=== PATIENT | female | born 1985 | race Caucasian/White ===

== ENCOUNTER → 2016-12-01 | Day surgery (SDC) | payer BC ==
[2016-11-29 08:37] VITALS: Ht 152.4 cm; Wt 111.4 kg
[~2016-12-01] VITALS: Ht 152.4 cm; Wt 111.4 kg
[~2016-12-01] MED LIST: BCTROWC EXT; CYCL5TAB PO; LACTATED RINGER'S 1000ML 1,000 ML IV ONE; LIDOCAINE HCL 2% 2 ML VIAL (20MG/ML) ONE; LORA-741 PO; MULT-506 PO; ONDANSETRON INJ 2 MG/ML 2 ML VIAL IV PRN; PROPOFOL IV EMULSION 10 MG/ML 20 ML VIAL IV ONE; SERT-234 PO
--- NOTE | 2016-12-01 09:35 | Endo History and Physical ---
History & Physical Date of Service: Dec 01, 2016. Chief Complaint: Diarrhea Referring Physician: History of Present Illness 31-year-old female referred for colonoscopy to evaluate 2-3 history of diarrhea. She describes having loose to liquid bowel movements 5-10 times per day. This is occasionally associated with urgency and cramping. There is no family history of inflammatory bowel disease however, there is a family history of celiac disease. She did have celiac serologies which were negative. Other issues include a cholecystectomy done about 2 years ago. Past Surgical History Hx Cardiac Surgery: No Hx Internal Defibrillator: No Hx Pacemaker: No Hx Abdominal Surgery: Yes (ZOE, TUBAL LIGATION) Hx of Implantable Prosthesis: No Hx Post-Op Nausea and Vomiting: No Hx Cancer Surgery: No Hx Thoracic Surgery: No Hx Orthopedic: No Hx Urinary Tract Surgery: No Cholecystectomy Tubal Ligation Family History None Social History Smoking Status: Former Smoker Hx Substance Use: No Hx Alcohol Use: No Allergies Coded Allergies: Acetaminophen (Verified Allergy, Unknown, ITCHING, 12/01/16) Butalbital (Verified Allergy, Unknown, ITCHING, 11/29/16) Caffeine (Verified Allergy, Unknown, ITCHING, 11/29/16) Meperidine (Verified Allergy, Unknown, DRY HEAVES, 11/29/16) Sulfites (Verified Allergy, Unknown, ITCHING, 11/29/16) Sumatriptan (Verified Allergy, Unknown, N/V, 11/29/16) Current Medications Reported Home Medications Medications Dose Route/Sig Max Daily Dose Days Date Category Multivitamin (Multivitamins) Tab 1 Tab PO QAM 11/29/16 Reported Flexeril (Cyclobenzaprine Hcl) 5 Mg Tab 5 Mg PO TID PRN 11/29/16 Reported Bactroban 2% Oint (Mupirocin) 66 Appln/22 Gm Oint 1 Appln EXT DAILY PRN 11/29/16 Reported Ativan (Lorazepam) 0.5 Mg Tab 0.5 Mg PO TID PRN 11/29/16 Reported Zoloft (Sertraline HCl) 100 Mg Tab 100 Mg PO HS 11/29/16 Reported Vital Signs Weight (Kilograms): 111.36 Height (Feet): 5 Height (Inches): 0 Physical Exam General Appearance: no apparent distress Respiratory/Chest: Auscultation: breath sounds normal Cardiovascular: Heart Auscultation: RRR Abdomen: Inspection & Palpation: soft Assessment and Plan Colonoscopy for evaluation of diarrhea. We have discussed the risks and his colon polyps. We will plan to do stool cultures and random biopsies during the examination if the mucosa appears normal.
[2016-12-01 09:37] VITALS: TEMP 36.9
--- NOTE | 2016-12-01 10:12 | GI REPORT ---
Procedure Date: 12/01/2016 9:47 AM Procedure: Colonoscopy Indications: Chronic diarrhea Medicines: Monitored Anesthesia Care Complications: No immediate complications. Estimated blood loss: Minimal. Estimated Blood Loss: Estimated blood loss was minimal. Procedure: Pre-Anesthesia Assessment: - Prior to the procedure, a History and Physical was performed, and patient medications, allergies and sensitivities were reviewed. The patient's tolerance of previous anesthesia was reviewed. - The risks and benefits of the procedure and the sedation options and risks were discussed with the patient. All questions were answered and informed consent was obtained. - Patient identification and proposed procedure were verified prior to the procedure by the physician, the nurse and the bow string maker. The procedure was verified in the procedure room. - Pre-procedure physical examination revealed no contraindications to sedation. - ASA Grade Assessment: II - A patient with mild systemic disease. - After reviewing the risks and benefits, the patient was deemed in satisfactory condition to undergo the procedure. - The anesthesia plan was to use monitored anesthesia care (MAC). - Immediately prior to administration of medications, the patient was re-assessed for adequacy to receive sedatives. - The heart rate, respiratory rate, oxygen saturations, blood pressure, adequacy of pulmonary ventilation, and response to care were monitored throughout the procedure. - The physical status of the patient was re-assessed after the procedure. After I obtained informed consent, the scope was passed under direct vision. Throughout the procedure, the patient's blood pressure, pulse, and oxygen saturations were monitored continuously. The scope was introduced through the anus and advanced to the terminal ileum. The colonoscopy was performed without difficulty. The patient tolerated the procedure well. The quality of the bowel preparation was good. Findings: The perianal and digital rectal examinations were normal. Pertinent negatives include normal sphincter tone. The terminal ileum appeared normal. Normal mucosa was found in the entire colon. Biopsies for histology were taken with a cold forceps from the entire colon for evaluation of microscopic colitis. Fluid aspiration was performed. Sample(s) were sent for bacterial cultures, Clostridium difficile and ova and parasites. Internal hemorrhoids were found during retroflexion. The hemorrhoids were mild. The exam was otherwise without abnormality. Impression: - The examined portion of the ileum was normal. - Normal mucosa in the entire examined colon. Biopsied. Fluid aspiration performed. - Internal hemorrhoids. - The examination was otherwise normal. Recommendation: - Discharge patient to home (ambulatory). - Advance diet as tolerated today. - Use Questran at 1 packet (4 grams) PO daily. - Await pathology results. - Perform an upper GI endoscopy at appointment to be scheduled. Marta Edmonds D.O. Marta Edmonds, DO 12/01/2016 10:11:22 AM This report has been signed electronically. Note Initiated On: 12/01/2016 9:47 AM I attest to the content of the Intraoperative Record and orders documented therein, exceptions below
--- NOTE | 2016-12-01 10:13 | Discharge Instructions ---
Endoscopy Patient Instructions Date / Procedure(s) Performed Dec 01, 2016. Colonoscopy Allergy Information Coded Allergies: Acetaminophen (Verified Allergy, Unknown, ITCHING, 12/01/16) Butalbital (Verified Allergy, Unknown, ITCHING, 11/29/16) Caffeine (Verified Allergy, Unknown, ITCHING, 11/29/16) Meperidine (Verified Allergy, Unknown, DRY HEAVES, 11/29/16) Sulfites (Verified Allergy, Unknown, ITCHING, 11/29/16) Sumatriptan (Verified Allergy, Unknown, N/V, 11/29/16) Discharge Date / Findings Dec 01, 2016. Small internal hemorrhoids Examination otherwise normal Medication Instructions Reported Home Medications Medications Dose Route/Sig Max Daily Dose Days Date Category Multivitamin (Multivitamins) Tab 1 Tab PO QAM 11/29/16 Reported Flexeril (Cyclobenzaprine Hcl) 5 Mg Tab 5 Mg PO TID PRN 11/29/16 Reported Bactroban 2% Oint (Mupirocin) 66 Appln/22 Gm Oint 1 Appln EXT DAILY PRN 11/29/16 Reported Ativan (Lorazepam) 0.5 Mg Tab 0.5 Mg PO TID PRN 11/29/16 Reported Zoloft (Sertraline HCl) 100 Mg Tab 100 Mg PO HS 11/29/16 Reported Provider Instructions Activity Restrictions - No exercising or heavy lifting for 24 hours. - Do not drink alcohol the day of the procedure. - Do not drive a car or operate machinery until the day after the procedure. - Do not make any important decisions or sign important papers in 24 hours after the procedure. Following Day: - Return to full activity which may include returning to work/school. Diet Start your diet with liquids and light foods (jello, soup, juice, toast). Then eat your usual diet if not nauseated. Treatment For Common After Affects For mild abdominal pain, bloating, or excessive gas: - Rest - Eat lightly - Lie on right side Follow-Up Information Follow-up with Dr Winston as scheduled Try Questran 4 g 1 time daily Upper endoscopy to be scheduled due to family history of celiac disease Anesthesia Information What You Should Know You have had a procedure that required some medicine to reduce anxiety and discomfort. This treatment is called moderate sedation. After receiving the treatment, you may be sleepy, but you will be able to breathe on your own. The effects of the treatment may last for several hours. Follow these instructions along with Activity/Diet recommendations noted above: * Do NOT do anything where dizziness or clumsiness would be dangerous. * Rest quietly at home today, then you can be up and about tomorrow. * Have a responsible person stay with you the rest of today. * You may have had an I.V. today. If so, you may take the dressing off later today. Recommendations Call your doctor if: * Trouble breathing * Continuous vomiting for more than 24 hours * Temperature above 101 degrees * Severe abdominal pain or bloating * Pain not relieved by pain medicine ordered * There is increased drainage or redness from any incision * A large amount of rectal bleeding greater than 2-3 tablespoons. (If you had a polyp/s removed or have hemorrhoids, a small amount of blood - from the rectum is to be expected.) * You have any unanswered questions or concerns. IN THE EVENT OF A SERIOUS EMERGENCY, GO TO THE NEAREST EMERGENCY ROOM Your discharge instructions were prepared by provider Marta Edmonds. Patient Instructions Signature Page Gloria Norton Patient (or Guardian) Signature/Date: I have read and understand the instructions given to me by my caregivers. Caregiver/RN/Doctor Signature/Date: The above-named patient and/or guardian has received patient instructions on this date. + Original Patient Signature Page (only) stays with chart. Please make copy for patient.
[2016-12-01 10:40] VITALS: BP 119/84; PULSE 83; O2SAT 99
--- NOTE | 2016-12-01 11:11 | Anesthesiology Progress Note ---
Anesthesia Post Op Note Date & Time Dec 01, 2016 at 11:11 Vital Signs Pain Intensity: 0 Vital Signs Past 12 Hours Date Time Temp Pulse Resp B/P (MAP) Pulse Ox O2 Delivery O2 Flow Rate FiO2 12/01/16 10:40 83 18 119/84 (96) 99 Room Air 12/01/16 10:25 77 18 117/71 (86) 94 Room Air 12/01/16 10:10 81 16 115/69 (84) 97 Room Air 12/01/16 09:37 36.9 89 20 119/67 (84) 97 Room Air Notes Mental Status: alert / awake / arousable, participated in evaluation Pt Amnestic to Procedure: Yes Nausea / Vomiting: adequately controlled Pain: adequately controlled Airway Patency, RR, SpO2: stable & adequate BP & HR: stable & adequate Hydration State: stable & adequate Anesthetic Complications: no major complications apparent
[2016-12-06 08:05] LABS: CRYPTOSPORIDIUM AG TC 37213 NOT DETECTED (NOT DETECTED); ISOSPORA+CYCLOSPORA NOT DETECTED (NOT DETECTED); O&P GIARDIA AG NOT DETECTED (NOT DETECTED)
== END | disposition home or self-care (01) ==
LOC: C.GI 08:52
PROVIDERS: ATTEND Internal Medicine Gastroenterology
DX: R19.7 Diarrhea, unspecified (principal); Z87.891 Personal history of nicotine dependence; K64.8 Other hemorrhoids